=== PATIENT | female | born 1965 | race Hispanic/Latino ===

== ENCOUNTER → 2023-02-09 | Outpatient (REF) | payer OTHER ==
[~2023-02-09] MED LIST: GADOBENATE DIMEGLUMINE 1 ML IV ONE
== END ==
LOC: MRI 08:40
PROVIDERS: ATTEND Ophthalmology
DX: H53.461 Homonymous bilateral field defects, right side (principal)
CPT/HCPCS: 70543; 70553; A9577

== ENCOUNTER → 2024-02-24 | Outpatient (REF) | payer OTHER ==
[~2024-02-24] MED LIST changes: +ACETAMINOPHEN325 M1 PO; +ATORVASTATIN CA10 MG PO; +BENZONATATE200 MG PO; +CEFTRIAXON2 GM/50 ML IVP; +Chloraseptic MM; +DEXTROSE 50%-WA50 M1 IV; +DICYCLOMINE HCL10 MG PO; -GADOBENATE DIMEGLUMINE 1 ML IV ONE; +GLIPIZIDE5 MG PO; +HUMULIN R100 UNIT/2 SQ; +HYDRALAZIN20 MG/1 ML IV; +HYDROCODON-ACE1 EAC9 PO; +IOPAMIDOL 370 MG/ML 100 ML INFUS..BTL INJ ONE; +JARDIANCE25 MG PO; +LABETALOL H5 MG/1 ML IV; +LOPRESSOR25 MG PO; +LOSARTAN POTASS25 MG PO; +METFORMIN HCL500 MG PO; +ONDANSETRON4 MG/2 M1 IV; +PANTOPRAZOLE SO40 MG PO; +POLYETHYLENE GL17 GM PO; +PREDNISONE10 MG PO; +PROTONIX40 MG/ML PO; +SENOKOT8.6 MG PO; +SORE THROAT LO1 EAC3 PO; +ZITHROMAX250 MG PO
[2024-02-24 15:30] LABS: CREATININE, SERUM 0.84 mg/dL (0.57-1.11)
== END ==
LOC: CT 14:39
PROVIDERS: ATTEND Nurse Practitioner Family
DX: K30 Functional dyspepsia (principal); K21.9 Gastro-esophageal reflux disease without esophagitis; R10.2 Pelvic and perineal pain; K59.00 Constipation, unspecified
CPT/HCPCS: 36415; 74177; 82565; 84520; Q9967